=== PATIENT | male | born 1965 | race African-American/Black ===

== ENCOUNTER 2021-09-02 03:13 | Emergency (ER) | payer MEDICAID, OTHER ==
[~2021-09-02] VITALS: Ht 167.6 cm; Wt 97.5 kg
[2021-09-02 04:40] VITALS: BP 148/86
[2021-09-02] MEDS ORDERED: ALBU108A5 IN (06:19)
[2021-09-02] MEDS ORDERED: AZITTAB PO (06:19)
[2021-09-02] MEDS ORDERED: PRED20TA2 PO (06:19)
== END 2021-09-02 06:27 | disposition home or self-care (01) ==
LOC: ER 03:19
DX: J40 Bronchitis, not specified as acute or chronic (principal)
CPT/HCPCS: 71046

== ENCOUNTER → 2021-11-10 | Emergency (ER) | payer MEDICAID ==
[~2021-11-10] VITALS: Ht 167.6 cm; Wt 97.5 kg
[~2021-11-10] MED LIST: ALBU108A5 IN; AZIT500T66 PO; AZITTAB PO; PRED20TA2 PO; PROM2SYP2 PO
[2021-11-10 07:34] VITALS: BP 155/86
== END | disposition home or self-care (01) ==
LOC: ER 01:41
DX: J20.9 Acute bronchitis, unspecified (principal)